=== PATIENT | female | born 1990 | race Caucasian/White ===

== ENCOUNTER 2016-03-17 13:09 | Outpatient (RCR) | payer OTHER ==
--- OUTSIDE RECORDS SUMMARY | 2016-01-14 13:22 | XMS REPORT | Continuity of Care Document ---
Author Author [facility] Organization [facility] Address Unknown Phone Unavailable Care Team Providers Care Supervisor Personnel Clerks Name Role Phone JUDITH JACKSON MD PCP Insurance Providers Payer Name Policy Number Subscriber Name Relationship [facility] [id number] Sean Montano 20 Father Advance Directives Directive Response Recorded Date/Time Advance Directives No 07/13/15 2:34pm Health Care Power of Entry Level Truck Driver No 07/13/15 2:34pm Organ Donor No 06/21/15 7:15pm Problems Active Problems Medical Problem Onset Date Status Calf pain Unknown Acute Deep vein thrombophlebitis of left leg Unknown Acute Leukocytosis Unknown Acute vaginal bleeding in Unknown Acute Medications Current Home Medications Medication Dose Units Route Directions Days/Qty Instructions Start Date Rivaroxaban 15 Mg 15 Mg Oral Bid@,17 16 Days BID until 08/03/2015 then change to 20 mg daily. 07/18/15 Oxycodone Hcl/Acetaminophen 1 Each 1 Each Oral Every 4HRS as needed for Pain 20 07/18/15 Lorazepam 1 Mg 2 Mg Oral Three Times A Day as needed for Anxiety 15 Naproxen 250 Mg 250 Mg Oral Twice A Day 14 07/18/15 Past Home Medications Medication Directions Ordered Status [Jacquelyn] , 09/04/08 Discontinued Tramadol Hcl 300 Mg Tab.sr.24h, 09/04/08 Discontinued Ciprofloxacin 500 Mg Tablet, 1 Tab Oral Twice A Day 09/04/08 Discontinued Cyclobenzaprine Hcl (Flexeril) 10 Mg Tablet, 1 Each Oral Twice A Day Discontinued Acetaminophen/Hydrocodone Bitart 1 Each Tablet, 1 - 2 Each Oral Q 4 - 6 Hr Prn 10/14/12 Discontinued Vit #108/Iron/Fa 1 Each Tablet, 1 Each Oral Daily 02/23/13 Discontinued Docusate Sodium 100 Mg Capsule, 1 Cap Oral Daily as needed for Constipation 10/03/13 Discontinued Acetaminophen/Hydrocodone Bitart ([place]) 1 Each Tablet, 1-2 Tab Oral Every 3 Hours as needed for Pain 10/03/13 Discontinued Ibuprofen 800 Mg Tablet, 1 Tab Oral Give Every 6 Hr On Schedule as needed for Pain 10/03/13 Discontinued Clindamycin Hcl 150 Mg Capsule, 450 Mg Oral Three Times A Day 06/21/15 Discontinued Naproxen 500 Mg Tablet, 500 Mg Oral Twice A Day 06/21/15 Discontinued Hydrocodone/Acetaminophen 1 Each Tablet, 1 Each Oral Every 4HRS as needed for Pain 06/21/15 Discontinued L.acidoph & Paracasei,B.lactis 1 Each Capsule, 1 Each Oral Twice A Day Discontinued Hydrocodone/Acetaminophen 1 Each Tablet, 1 Tab Oral Every 8HRS as needed for Severe Pain 07/13/15 Discontinued Norgestimate-Ethinyl Estradiol 1 Each Tablet, 1 Tab Oral Daily 07/13/15 Discontinued Social History Social History Problem Response Recorded Date/Time Alcohol Use Denies Use 07/13/2015 2:33pm Recreational Drug Use No 07/13/2015 2:33pm Recent Foreign Travel No 09/30/2013 8:27pm Recent Infectious Disease Exposure No 09/30/2013 8:27pm Sexually Transmitted Disease No 07/13/2015 2:33pm HIV/AIDS No 07/13/2015 2:33pm Do you dip or chew tobacco? No 07/13/2015 2:35pm Sexually Transmitted Disease No 07/13/2015 2:33pm Hospital Discharge Instructions No hospital discharge instructions. Plan of Care Prescriptions See Medication Section Functional Status No functional status results. Allergies, Adverse Reactions, Alerts Allergen Type Severity Reaction Status Last Updated Penicillins ([id number]) Allergy Severe HIVES AND SWELLING Active 07/13/15 Cephalexin Allergy Severe HIVES AND SWELLING Active 07/13/15 cefaclor ([id number]) Allergy Severe HIVES AND SWELLING Active 07/13/15 adhesive tape Allergy Unknown Active 07/14/15 amoxicillin ([id number]) Allergy Severe HIVES AND SWELLING Active 07/13/15 Immunizations No immunization records. Vital Signs No known vital signs results. Results No known relevant diagnostic tests, laboratory data and/or discharge summary. Procedures No known history of procedures. Encounters Encounter Location Arrival/Admit Date Discharge/Depart Date Attending Provider Discharged Recurring [facility] 08/13/15 1:50pm 11:59pm JUDD MCGOWAN
[2016-01-14 13:35] LABS: BASOPHILS % (AUTO) 0 % (0-10); EOSINOPHILS # (AUTO) 0.7 10^3/uL (0.0-0.3); EOSINOPHILS % (AUTO) 6 % (0-10); LYMPHOCYTES % (AUTO) 26 % (12-44); MEAN CORPUSCULAR HEMOGLOBIN 27 PG (25-34); MEAN CORPUSCULAR HGB CONC 33 G/DL (32-36); MEAN CORPUSCULAR VOLUME 82 FL (80-99); MEAN PLATELET VOLUME 10.1 FL (7.4-10.4); MONOCYTES # (AUTO) 0.8 X 10^3 (0.0-1.0); MONOCYTES % (AUTO) 7 % (0-12); NEUTROPHILS # (AUTO) 7.2 X 10^3 (1.8-7.8); NEUTROPHILS % (AUTO) 61 % (42-75); PLATELET COUNT 320 10^3/uL (130-400); RED BLOOD COUNT 4.92 10^6/uL (4.35-5.85); RED CELL DISTRIBUTION WIDTH 15.6 % (10.0-14.5); WHITE BLOOD COUNT 11.7 10^3/uL (4.3-11.0)
[2016-01-14 14:31] LABS: ALANINE AMINOTRANSFERASE 19 U/L (0-55); ALBUMIN 4.1 G/DL (3.2-4.5); ANION GAP 13 MMOL/L (5-14); ASPARTATE AMINO TRANSFERASE 17 U/L (5-34); BILIRUBIN,TOTAL 0.3 MG/DL (0.1-1.0); BLOOD UREA NITROGEN 12 MG/DL (7-18); BUN/CREATININE RATIO 17; CALCIUM 9.5 MG/DL (8.5-10.1); CARBON DIOXIDE 23 MMOL/L (21-32); CHLORIDE 107 MMOL/L (98-107); GFR ESTIMATED > 60; GLUCOSE 97 MG/DL (70-105); POTASSIUM 3.8 MMOL/L (3.6-5.0); SODIUM 143 MMOL/L (135-145); TOTAL PROTEIN 6.8 G/DL (6.4-8.2)
[2016-03-02 06:39] LABS: DIL RUSSELL VIPER VENOM SCREEN 0.82 ratio (0.00-1.20); LUPUS ANTICOAGULANT PTT 38.9 Seconds (24.4-41.7); PROTEIN C FUNCTIONAL ASSAY 130 % (70-130)
[2016-03-02 06:48] LABS: PT REF RML 13.7 SEC (10.5-15.7); PTT LUPUS 38.1 SEC (20.6-39.2)
[2016-03-05 13:52] LABS: CLIN PATHOLOGY REPORT FOOTNOTE
[~2016-03-17 13:09] MED LIST: ASPI-983 PO; CIPR-225 PO; CLIN150C17 PO; CPR500T PO; CYCL10TA9 PO; DCS100C PO; HYDR-3720 PO; HYDR-3874 PO; HYDR-707 PO; HYDR-753 PO; HYDR-757 PO; IBP800T PO; L.AC1CAP6 PO; LORA1TAB PO; NAPR250T2 PO; NAPR500T PO; NITR-68 PO; NORG1TAB15 PO; OXYC-464 PO; OXYC-465 PO; PREN-115 PO; RIVA15TA PO; TAMS0.4C98 PO; TRAM300T4; YAZ
== END 2016-04-13 | disposition home or self-care (01) ==
LOC: ONC 13:09
PROVIDERS: ATTEND Internal Medicine Hematology & Oncology
DX: I82.402 Acute embolism and thrombosis of unspecified deep veins of left lower extremity (principal); I26.99 Other pulmonary embolism without acute cor pulmonale; I87.002 Postthrombotic syndrome without complications of left lower extremity; R60.0 Localized edema; F17.210 Nicotine dependence, cigarettes, uncomplicated; E66.9 Obesity, unspecified; Z68.36 Body mass index [BMI] 36.0-36.9, adult; Z79.01 Long term (current) use of anticoagulants
CPT/HCPCS: 36415; 80053; 82728; 85025; 85300; 85303; 85306; 85610; 85613; 85705; 85730; 86146; 86147; 99213

== ENCOUNTER 2016-05-10 05:20 | Inpatient (IN) | payer OTHER ==
[~2016-05-10] VITALS: Ht 157.5 cm; Wt 89.2 kg
[2016-05-10] MEDS ORDERED: NS IV 1000 ML 1,000 ML IV ONE (05:22)
--- OUTSIDE RECORDS SUMMARY | 2016-05-10 05:25 | XMS REPORT | Continuity of Care Document ---
Author Author [facility] Organization [facility] Address Unknown Phone Unavailable Care Team Providers Care Commodity Merchant Name Role Phone JUDITH JACKSON MD PCP Insurance Providers Payer Name Policy Number Subscriber Name Relationship [facility] [id number] Sean Montano 20 Father Advance Directives Directive Response Recorded Date/Time Advance Directives No 07/13/15 2:34pm Health Care Power of Document Control Specialist No 07/13/15 2:34pm Organ Donor No 06/21/15 [...] needed for Constipation 10/03/13 Discontinued Acetaminophen/Hydrocodone Bitart ([place]) 1 Each Tablet, 1-2 Tab Oral Every [...] Type Severity Reaction Status Last Updated Penicillins ([id number]) Allergy Severe HIVES AND SWELLING Active 07/13/15 Cephalexin Allergy Severe HIVES AND SWELLING Active 07/13/15 cefaclor ([id number]) Allergy Severe HIVES AND SWELLING Active 07/13/15 adhesive tape Allergy Unknown Active 07/14/15 amoxicillin ([id number]) Allergy Severe HIVES AND SWELLING Active 07/13/15 Immunizations No immunization records. Vital Signs No known vital signs results. Results No known relevant diagnostic tests, laboratory data and/or discharge summary. Procedures No known history of procedures. Encounters Encounter Location Arrival/Admit Date Discharge/Depart Date Attending Provider Discharged Recurring [facility] 08/13/15 1:50pm 11:59pm JUDD MCGOWAN
[2016-05-10] MEDS ORDERED: ONDANSETRON 4 MG/2 ML (SDV) Z0FRAN IVP ONE ×3 (05:30→07:30)
[2016-05-10] MEDS ORDERED: fentaNYL INJECTION 100 MCG/2 ML AMP IVP ONE (05:30)
[2016-05-10] MEDS ORDERED: LORA1TAB PO (05:36)
[2016-05-10 05:39] LABS: BASOPHILS % (AUTO) 0 % (0-10); EOSINOPHILS # (AUTO) 0.8 10^3/uL (0.0-0.3); EOSINOPHILS % (AUTO) 5 % (0-10); LYMPHOCYTES # (AUTO) 3.3 X 10^3 (1.0-4.0); LYMPHOCYTES % (AUTO) 22 % (12-44); MEAN CORPUSCULAR HEMOGLOBIN 27 PG (25-34); MEAN CORPUSCULAR HGB CONC 34 G/DL (32-36); MEAN CORPUSCULAR VOLUME 79 FL (80-99); MONOCYTES # (AUTO) 1.5 X 10^3 (0.0-1.0); MONOCYTES % (AUTO) 10 % (0-12); NEUTROPHILS # (AUTO) 9.8 X 10^3 (1.8-7.8); NEUTROPHILS % (AUTO) 64 % (42-75); PLATELET COUNT 409 10^3/uL (130-400); RED BLOOD COUNT 5.17 10^6/uL (4.35-5.85); RED CELL DISTRIBUTION WIDTH 14.9 % (10.0-14.5); WHITE BLOOD COUNT 15.4 10^3/uL (4.3-11.0)
--- NOTE | 2016-05-10 05:59 | ED Abdominal Pain ---
General Chief Complaint: Abdominal/GI Problems Stated Complaint: KIDNEY STONES Nursing Triage Note: c/o severe R flank pain since patient reports being evaluated by pcp for same Sepsis Screen: No Definite Risk Source of Information: Patient, Old Records Exam Limitations: No Limitations (NATE HAYDEN MD) History of Present Illness Time Seen By Provider: 05:22 Initial Comments This 26-year-old woman presents to the emergency room tearful and in pain in the right flank. She was seen by her primary care provider on and was noted to have hematuria. She presumably has a ureteral stone and has a history of renal stones. She is also nauseated without vomiting. She reports is a possibility as her last menstrual period was the beginning of March. She denies fever. In review of chart it was noted that patient had an 8 mm UPJ stone on the right in January. She was treated with ESWL by Dr. Conn in February. She has been relatively pain free since the ESWL until last week. Additional stones were noted in the right kidney on the CT from January. (NATE HAYDEN MD) Allergies and Home Medications Allergies Coded Allergies: Penicillins (Unverified Allergy, Severe, HIVES AND SWELLING, 07/13/15) amoxicillin (Unverified Allergy, Severe, HIVES AND SWELLING, 07/13/15) cefaclor (Unverified Allergy, Severe, HIVES AND SWELLING, 07/13/15) cephalexin (Unverified Allergy, Severe, HIVES AND SWELLING, 07/13/15) adhesive tape (Verified Allergy, Unknown, 07/14/15) Home Medications Lorazepam 1 Mg Tablet 1 MG PO BID PRN PRN ANXIETY (Reported) Review of Systems Constitutional: no symptoms reported EENTM: No Symptoms Reported Respiratory: No Symptoms Reported Cardiovascular: No Symptoms Reported Gastrointestinal: See HPI Genitourinary: See HPI Musculoskeletal: no symptoms reported Skin: no symptoms reported Psychiatric/Neurological: No Symptoms Reported Endocrine: No Symptoms Reported Hematologic/Lymphatic: No Symptoms Reported (NATE HAYDEN MD) Past Uwtnogk-Gdyfbe-Wvxvco Hx Patient Social History Type Used: Cigarettes Recent Foreign Travel: No Contact w/Someone Who Travel: No Recent Infectious Disease Expo: No Recent Hopitalizations: No (NATE HAYDEN MD) Immunizations Up To Date Tetanus Booster (TDap): Unknown PED Vaccines UTD: Yes (NATE HAYDEN MD) Seasonal Allergies Seasonal Allergies: Yes (NATE HAYDEN MD) Surgeries HX Surgeries: Yes (lithotrypsy) Surgeries: Section (NATE HAYDEN MD) Respiratory Hx Respiratory Disorders: Yes Respiratory Disorders: Pulmonary Embolism (NATE HAYDEN MD) Cardiovascular Hx Cardiac Disorders: Yes (DVT LEG) (NATE HAYDEN MD) Neurological Hx Neurological Disorders: No (NATE HAYDEN MD) Reproductive System Hx Reproductive Disorders: No Sexually Transmitted Disease: No HIV/AIDS: No Female Reproductive Disorders: Denies (NATE HAYDEN MD) Genitourinary Hx Genitourinary Disorders: Yes Genitourinary Disorders: Kidney Stones (NATE HAYDEN MD) Gastrointestinal Hx Gastrointestinal Disorders: Yes Gastrointestinal Disorders: Gastroesophageal Reflux (NATE HAYDEN MD) Musculoskeletal Hx Musculoskeletal Disorders: No (NATE HAYDEN MD) Endocrine Hx Endocrine Disorders: No (NATE HAYDEN MD) HEENT HX ENT Disorders: No Loss of Vision: Denies Hearing Impairment: Denies (NATE HAYDEN MD) Cancer Hx Cancer: No (NATE HAYDEN MD) Psychosocial Hx Psychiatric Problems: Yes Behavioral Health Disorders: Anxiety (NATE HAYDEN MD) Integumentary HX Skin/Integumentary Disorder: No (NATE HAYDEN MD) Blood Transfusions Hx Blood Disorders: No Adverse Reaction to a Blood Tr: No (N/A) (NATE HAYDEN MD) Family Medical History Family Medial History: Cancer 19 MOTHER, Onset:25's - 30 No Family History of: Abdominal aortic aneurysm Serge's disease Alcoholism Aphasia Cancer of colon Cataract Chest pain Congenital heart disease Congestive heart failure Cystic fibrosis Dementia Dysphagia Family history: Allergy Family history: Alzheimer's disease Family history: Arthritis Family history: Asthma Family history: Breast disease Family history: Cardiovascular disease Family history: Coronary thrombosis Family history: Diabetes mellitus Family history: Gastrointestinal disease Family history: Glaucoma Family history: Hypertension Family history: Osteoporosis Family history: Thyroid disorder Headache Hearing loss Heart disease Hereditary disease History of - anemia History of - disorder History of - respiratory disease History of drug abuse Human immunodeficiency virus (HIV) seropositivity Hypercholesterolemia Infertile Kidney disease Malignant neoplasm of lung Myocardial infarction Parkinson's disease Prostate cancer Psychotic disorder Seizure disorder Stroke Tuberculosis Visual impairment (NATE HAYDEN MD) Family Medial History: Cancer 19 MOTHER, Onset:25's - 30 No Family History of: Abdominal aortic aneurysm [place]'s disease Alcoholism Aphasia Cancer of colon Cataract Chest pain Congenital heart disease Congestive heart failure Cystic fibrosis Dementia Dysphagia Family history: Allergy Family history: Alzheimer's disease Family history: Arthritis Family history: Asthma Family history: Breast disease Family history: Cardiovascular disease Family history: Coronary thrombosis Family history: Diabetes mellitus Family history: Gastrointestinal disease Family history: Glaucoma Family history: Hypertension Family history: Osteoporosis Family history: Thyroid disorder Headache Hearing loss Heart disease Hereditary disease History of - anemia History of - disorder History of - respiratory disease History of drug abuse Human immunodeficiency virus (HIV) seropositivity Hypercholesterolemia Infertile Kidney disease Malignant neoplasm of lung Myocardial infarction Parkinson's disease Prostate cancer Psychotic disorder Seizure disorder Stroke Tuberculosis Visual impairment (ADY HERNANDEZ DO) Physical Exam Vital Signs VS - Last 72 Hours, by Label 05/10/16 05/10/16 05:25 07:13 Temp 99.4 99.4 Pulse 110 Resp 24 B/P 134/102 Pulse Ox 100 O2 Delivery Room Air (ADY HERNANDEZ DO) Vital Signs Capillary Refill : Less Than 3 Seconds (NATE HAYDEN MD) General Appearance: WD/WN moderate distress HEENT: PERRL/EOMI normal ENT inspection pharynx normal Neck: normal inspection Respiratory: lungs clear normal breath sounds no respiratory distress no accessory muscle use Cardiovascular: regular rate, rhythm no edema no murmur Gastrointestinal: normal bowel sounds soft tenderness (right mid abdomen) Extremities: normal inspection no pedal edema Neurologic/Psychiatric: pulpwood cutter II-XII nml as tested no motor/sensory deficits alert normal mood/affect oriented x 3 Skin: normal color warm/dry (NATE HAYDEN MD) Progress/Results/Core Measures Results/Orders Lab Results Laboratory Tests Test 05/10/16 05:25 05/10/16 06:40 Range/Units Alanine Aminotransferase (ALT/SGPT) 9 0-55 U/L Albumin 4.1 3.2-4.5 G/DL Alkaline Phosphatase 82 40-136 U/L Anion Gap 13 5-14 MMOL/L Aspartate Amino Transf (AST/SGOT) 12 5-34 U/L BUN/Creatinine Ratio 13 Basophils # (Auto) 0.0 0.0-0.1 10^3/uL Basophils (%) (Auto) 0 0-10 % Blood Morphology Comment NORMAL Blood Urea Nitrogen 15 7-18 MG/DL Calcium Level 9.7 8.5-10.1 MG/DL Carbon Dioxide Level 21 21-32 MMOL/L Chloride Level 107 98-107 MMOL/L Creatinine 1.12 0.60-1.30 MG/DL Eosinophils # (Auto) 0.8 H 0.0-0.3 10^3/uL Eosinophils % (Manual) 3 % Eosinophils (%) (Auto) 5 0-10 % Estimat Glomerular Filtration Rate 59 Glucose Level 103 70-105 MG/DL Hematocrit 41 35-52 % Hemoglobin 13.9 11.5-16.0 G/DL Lymphocytes # (Auto) 3.3 1.0-4.0 X 10^3 Lymphocytes % (Manual) 24 % Lymphocytes (%) (Auto) 22 12-44 % Mean Corpuscular Hemoglobin 27 25-34 PG Mean Corpuscular Hemoglobin Concent 34 32-36 G/DL Mean Corpuscular Volume 79 L 80-99 FL Mean Platelet Volume 10.0 7.4-10.4 FL Monocytes # (Auto) 1.5 H 0.0-1.0 X 10^3 Monocytes % (Manual) 7 % Monocytes (%) (Auto) 10 0-12 % Neutrophils # (Auto) 9.8 H 1.8-7.8 X 10^3 Neutrophils % (Manual) 66 % Neutrophils (%) (Auto) 64 42-75 % Platelet Count 409 H 130-400 10^3/uL Potassium Level 4.3 3.6-5.0 MMOL/L Red Blood Count 5.17 4.35-5.85 10^6/uL Red Cell Distribution Width 14.9 H 10.0-14.5 % Serum Test, Qualitative NEGATIVE NEGATIVE Sodium Level 141 135-145 MMOL/L Total Bilirubin 0.3 0.1-1.0 MG/DL Total Protein 7.5 6.4-8.2 G/DL White Blood Count 15.4 H 4.3-11.0 10^3/uL Urine Amorphous Sediment FEW ALEKSANDR PHOSPHATE H /LPF Urine Bacteria TRACE /HPF Urine Bilirubin NEGATIVE NEGATIVE Urine Casts NONE /LPF Urine Clarity CLEAR Urine Color TANNA H Urine Crystals PRESENT H /LPF Urine Culture Indicated NO Urine Glucose (UA) NEGATIVE NEGATIVE Urine Ketones NEGATIVE NEGATIVE Urine Leukocyte Esterase 1+ H NEGATIVE Urine Mucus NEGATIVE /LPF Urine Nitrite NEGATIVE NEGATIVE Urine Other /HPF Urine Protein 2+ H NEGATIVE Urine RBC >100 H /HPF Urine RBC (Auto) 5+ H NEGATIVE Urine Specific [place] 1.005 L 1.016-1.022 Urine Squamous Epithelial Cells >50 H /HPF Urine Urobilinogen NORMAL NORMAL MG/DL Urine WBC RARE /HPF Urine pH 7 5-9 (ADY HERNANDEZ DO) My Orders Orders-ADY HERNANDEZ DO Hydromorphone Injection (Dilaudid Inject (05/10/16 07:15) Abdomen/Kub 1view (05/10/16 07:16) Ondansetron Injection (Zofran Injectio (05/10/16 07:30) (ADY HERNANDEZ DO) Medications Given in ED Current Medications Medications Dose Ordered Sig/Awilda Route Start Time Stop Time Status Last Admin Dose Admin Fentanyl Citrate 75 mcg ONCE ONCE IVP 05/10/16 05:30 05/10/16 05:31 DC 05/10/16 05:31 75 MCG Hydromorphone HCl 1 mg ONCE ONCE IVP 05/10/16 07:15 05/10/16 07:16 DC 05/10/16 07:13 1 MG Iohexol 100 ml ONCE ONCE IV 05/10/16 06:15 05/10/16 06:44 DC 05/10/16 06:18 100 ML Ketorolac Tromethamine 30 mg ONCE ONCE IVP 05/10/16 06:00 05/10/16 06:02 DC 05/10/16 06:04 30 MG Levofloxacin/ Dextrose 100 ml @ 100 mls/hr ONCE ONCE IV 05/10/16 06:30 05/10/16 07:29 DC 05/10/16 06:48 100 MLS/HR Morphine Sulfate 5 mg ONCE ONCE IVP 05/10/16 06:00 05/10/16 06:01 DC 05/10/16 05:57 5 MG Ondansetron HCl 4 mg ONCE ONCE IVP 05/10/16 05:30 05/10/16 05:31 DC 05/10/16 05:31 4 MG Ondansetron HCl 4 mg ONCE ONCE IVP 05/10/16 06:15 05/10/16 06:16 DC 05/10/16 06:07 4 MG Ondansetron HCl 4 mg ONCE ONCE IVP 05/10/16 07:30 05/10/16 07:31 DC 05/10/16 07:21 4 MG Sodium Chloride 1,000 ml @ 0 mls/hr Q0M ONCE IV 05/10/16 05:22 05/10/16 05:24 DC 05/10/16 05:28 0 MLS/HR Sodium Chloride 80 ml 80 ml ONCE ONCE IV 05/10/16 06:15 05/10/16 06:44 DC 05/10/16 06:18 80 ML (ADY HERNANDEZ DO) Vital Signs/I&O Vital Sign - Last 12Hours 05/10/16 05/10/16 05:25 07:13 Temp 99.4 99.4 Pulse 110 Resp 24 B/P 134/102 Pulse Ox 100 O2 Delivery Room Air (ADY HERNANDEZ DO) Blood Pressure Mean: 113 Progress Note #1: Time: 05:54 Progress Note Patient initially persistently reported her pain is greater than 10 on a 10 point scale. She received fentanyl 75 g. Zofran was ordered for nausea. She still reports her pain as 9/10. Morphine 5 mg was ordered. IV fluids are infusing. Labs are pending. Imaging will be ordered pending results of test. Progress Note #2: Time: 06:05 Progress Note Patient is still tearful and in significant pain. Toradol has been added as test was negative. CT of the abdomen and pelvis with contrast was ordered. Patient is still nauseated and an additional 4 mg of Zofran was ordered. Care of this patient is being transitioned to Dr. Hernandez at this time. (NATE HAYDEN MD) Diagnostic Imaging Diagonstic Imaging: CT Plain Films/CT/US/NM/MRI: abdomen, pelvis Comments CT abdomen and pelvis with contrast viewed by me and report reviewed. See report below: NAME: BENJI MONTANO [facility] REC#: [id number] PT STATUS: ADM Kat : 1990 PHYSICIAN: NATE HAYDEN MD ADMIT DATE: 05/10/16/4TH Signed Date of Exam: 05/10/16 CT ABDOMEN/PELVIS W PROCEDURE: CT abdomen and pelvis with contrast. TECHNIQUE: Multiple contiguous axial images were obtained through the abdomen and pelvis after administration of intravenous contrast. INDICATION: Right-sided abdominal pain. COMPARISON: 01/29/2016. FINDINGS: There is a 9 mm obstructing calculus in the distal right ureter near the level of lumbosacral junction. This results in at least moderate proximal hydroureter and hydronephrosis. There is delayed enhancement of the right kidney compatible with high-grade obstruction. There are a few linear 3 mm nonobstructing calculi in the upper and lower pole of the right kidney. Left kidney enhances normally without obstructing calculi. Lung bases are clear. No pericardial or pleural effusion. No free intraperitoneal air or fluid. The liver, spleen, pancreas and adrenals are normal. No bowel obstruction. No pericolonic inflammatory changes. Appendix is normal. Normal caliber abdominal aorta. No abdominal or pelvic lymphadenopathy. Normal regional skeleton. IMPRESSION: 1. There is a 9 mm obstructing calculus in the distal right ureter resulting in moderate proximal hydroureter and moderate hydronephrosis. Delayed enhancement of the right kidney is compatible with high-grade obstruction. Dictated by: Dictated on workstation # [id number] Dict: 05/10/16 0635 Trans: 05/10/16 0803 [id number] Interpreted by: JAYLA SENIOR MD Electronically signed by:JAYLA SENIOR MD 05/10/16 0806 (NATE HAYDEN MD) Departure Communication Time/Spoke to Admitting Phy: 06:58 (ADY HERNANDEZ DO) Impression Impression: Primary Impression: Right ureterolithiasis c/ colic/hydro Disposition: 09 ADMITTED INPATIENT Condition: Stable Decision to Admit Reason: Admit from ER (General) Decision to Admit/Date: May 10, 2016 Time/Decision to Admit Time: 07:00 (ADY HERNANDEZ DO) Departure-Patient Inst. Referrals: JUDITH JACKSON MD (PCP/Family) Primary Care Physician NATE HAYDEN MD May 10, 2016 05:59 ADY HERNANDEZ DO May 10, 2016 07:31 ADY HERNANDEZ DO May 10, 2016 07:31
[2016-05-10] MEDS ORDERED: morphine INJ 10 MG/ML 1ML (SYR OR VIAL) IVP ONE (06:00)
[2016-05-10] MEDS ORDERED: KETOROLAC 30 MG/ML VIAL IVP ONE (06:00)
[2016-05-10 06:01] LABS: ALBUMIN 4.1 G/DL (3.2-4.5); BILIRUBIN,TOTAL 0.3 MG/DL (0.1-1.0); CALCIUM 9.7 MG/DL (8.5-10.1); CREATININE SERUM 1.12 MG/DL (0.60-1.30); POTASSIUM 4.3 MMOL/L (3.6-5.0); TOTAL PROTEIN 7.5 G/DL (6.4-8.2)
[2016-05-10] MEDS ORDERED: NS 100 ML (IVPB) BAG IV ONE (06:15)
[2016-05-10] MEDS ORDERED: IOHEXOL 350 MG/ML 100 ML (OMNIPAQUE 350) VIAL IV ONE (06:15)
[2016-05-10 06:29] LABS: EOSINOPHILS % (MANUAL) 3 %; LYMPHOCYTES % (MANUAL) 24 %; NEUTROPHILS % (MANUAL) 66 %
[2016-05-10] MEDS ORDERED: LEVOFLOXACIN 500 MG/100 ML IV 100 ML IV ONE (06:30)
--- NOTE | 2016-05-10 06:42 | Diagnostic Imaging Report ---
PROCEDURE: CT abdomen and pelvis with contrast. TECHNIQUE: Multiple contiguous axial images were obtained through the abdomen and pelvis after administration of intravenous contrast. INDICATION: Right-sided abdominal pain. COMPARISON: 01/29/2016. FINDINGS: There is a 9 mm obstructing calculus in the distal right ureter near the level of lumbosacral junction. This results in at least moderate proximal hydroureter and hydronephrosis. There is delayed enhancement of the right kidney compatible with high-grade obstruction. There are a few linear 3 mm nonobstructing calculi in the upper and lower pole of the right kidney. Left kidney enhances normally without obstructing calculi. Lung bases are clear. No pericardial or pleural effusion. No free intraperitoneal air or fluid. The liver, spleen, pancreas and adrenals are normal. No bowel obstruction. No pericolonic inflammatory changes. Appendix is normal. Normal caliber abdominal aorta. No abdominal or pelvic lymphadenopathy. Normal regional skeleton. IMPRESSION: 1. There is a 9 mm obstructing calculus in the distal right ureter resulting in moderate proximal hydroureter and moderate hydronephrosis. Delayed enhancement of the right kidney is compatible with high-grade obstruction. Dictated by: Dictated on workstation # [id number]
[2016-05-10 06:57] LABS: BILIRUBIN,URINE NEGATIVE (NEGATIVE); KETONES,URINE NEGATIVE (NEGATIVE); LEUKOCYTE ESTERASE ,URINE 1+ (NEGATIVE); NITRITE,URINE NEGATIVE (NEGATIVE); PH,URINE 7 (5-9); PROTEIN,URINE 2+ (NEGATIVE); UROBILINOGEN,URINE NORMAL (NORMAL)
[2016-05-10 07:09] LABS: SQUAMOUS EPITHELIAL CELL,UR >50 /HPF; WBC,URINE RARE /HPF
[2016-05-10] MEDS ORDERED: HYDROmorphone (DILAUDID) 2 MG/ML VIAL IVP ONE (07:15)
--- NOTE | 2016-05-10 07:58 | Diagnostic Imaging Report ---
INDICATION: Kidney stone. COMPARISON: 03/02/2016. COMPARISON: CT abdomen and pelvis performed one hour prior. FINDINGS: There is contrast material in the renal collecting system and bladder from recent CT. Moderate dilation of the proximal right collecting system is compatible with known obstructing uropathy. The distal right ureteral calculus is not radiographically apparent as it has summation over the region of the sacrum. IMPRESSION: 1. Known obstructing distal right ureteral calculus is not radiographically apparent. Moderate right hydronephrosis and proximal hydroureter is again confirmed. Dictated by: Dictated on workstation # [id number]
[2016-05-10 08:00] VITALS: BP 121/68
[2016-05-10] MEDS ORDERED: CATHETER FLUSH 10 ML SYR IV PRN (08:30)
[2016-05-10] MEDS: NS IV 1000 ML 1,000 ML IV SCH ×2 (08:56→16:57)
[2016-05-10] MEDS: fentaNYL PCA 300 MCG/30 ML VIAL IV PRN (09:06)
--- NOTE | 2016-05-10 11:56 | HISTORY AND PHYSICAL ---
DATE OF ADMISSION: 05/10/2016 CHIEF COMPLAINT: Right mid ureteral stone with pain and obstruction. PRESENT HISTORY: A 26-year-old white lady known to me with history of urolithiasis who underwent an ESWL sometime in February. She did very well until a few days ago when she started having right flank pain. She went to her PCT and then presented to the emergency room with severe pain. A CT scan showed 9 millimeter stone in the mid ureter with some obstruction. She is being admitted for pain control and definitive treatment tomorrow as the ESWL machine is going to be here. ALLERGIES: 1. PENICILLIN 2. CEPHALOSPORINS HOME MEDICATIONS: Lorazepam SOCIAL HISTORY: The patient smokes a pack of cigarettes a day. No alcohol. No drugs. She is a single has one child. SURGERY LYNN: 1. The above-mentioned surgery. 2. Previous basket. 3. . FAMILY HISTORY: Positive for stones. Medical illnesses: Healthy except for anxiety and also seasonal allergies. PHYSICAL EXAMINATION: Vitals per chart. GENERAL: Well-nourished, well-developed, in moderate distress. HEAD: The head is normocephalic. ENT: Unremarkable. NECK: Supple. No bruits. CHEST: Clear, nontender. HEART: Regular rate and rhythm. No murmur. ABDOMEN: Soft with some right CVA tenderness. EXTREMITIES: Lower extremity no edema or cyanosis. NEUROLOGICAL EXAM: Oriented x 3 and grossly intact. SKIN: Skin is warm and dry. IMPRESSION: 1. Right mid ureteral stone with pain and obstruction and hematuria. 2. History of urolithiasis. 3. Anxiety. 4. Seasonal allergies. PLAN: Admit, keep her comfortable, cover with antibiotic. Have a KUB in the morning and proceed with cystoscopy, right ureteroscopy with stone lithotripsy, possible basket, double-J stent, ESWL or lithotomy. The procedure was fully explained to the patient in detail to all of her questions were answered. Job ID: [id number] Dictated Date: 05/10/2016 11:21:25 Program Director/Traffic Director Date: 05/10/2016 11:49:12/maria teresa
[2016-05-10] MEDS: KETOROLAC 30 MG/ML VIAL IV SCH ×3 (11:58→23:01)
[2016-05-10] MEDS: ONDANSETRON 4 MG/2 ML (SDV) Z0FRAN IV PRN ×2 (11:58→19:28)
[2016-05-10 12:00] VITALS: BP 107/70
[2016-05-10] MEDS ORDERED: FLU TRIvalent (5 YOA+) 2016-17 (AFLURIA) 0.5 ML IM ONE (12:00)
[2016-05-10 16:02] VITALS: BP 108/64
[2016-05-10] MEDS: NICOTINE 14 MG (NICODERM) PATCH TD SCH (19:23)
[2016-05-10 20:19] VITALS: BP 112/74
[2016-05-11] VITALS: BP 114/71
[2016-05-11] MEDS: NS IV 1000 ML 1,000 ML IV SCH ×4 (01:20→17:51)
[2016-05-11 04:00] VITALS: BP 137/84
[2016-05-11] MEDS: KETOROLAC 30 MG/ML VIAL IV SCH ×4 (04:37→23:41)
[2016-05-11] MEDS ORDERED: HYDROmorphone (DILAUDID) 2 MG/ML VIAL IVP ONE (05:30)
--- NOTE | 2016-05-11 07:09 | Progress Note-Pre Operative ---
Pre-Operative Progress Note H&P Reviewed The H&P was reviewed, patient examined and no changes noted. Date H&P Reviewed: May 11, 2016 Time H&P Reviewed: 07:09 Pre-Operative Diagnosis: Rt distal ureteral stone CHEKO ANGELES MD May 11, 2016 7:09 am
[2016-05-11 08:00] VITALS: BP 125/79
[2016-05-11] MEDS: LEVOFLOXACIN 500 MG/D5W 100 ML (PRE-MIX) IV SCH (08:42)
[2016-05-11] MEDS: NICOTINE 14 MG (NICODERM) PATCH TD SCH (08:42)
[2016-05-11] MEDS: NICOTINE PATCH REMOVAL TP SCH (08:42)
[2016-05-11] MEDS: ONDANSETRON 4 MG/2 ML (SDV) Z0FRAN IV PRN ×3 (08:46→17:51)
--- NOTE | 2016-05-11 08:57 | Diagnostic Imaging Report ---
INDICATION: Nephrolithiasis. FINDINGS: There has been interval evacuation of previous contrast media. Known large stone previously had projected over the mid-upper right sacral ala, it can no longer be clearly identified however its conceivably obscured by superimposition upon overlying osseous structures. The bowel gas pattern nonspecific. IMPRESSION: Interval evacuation of the urinary tract contrast. Nonvisualization of previously seen large stone projecting over the sacrum but again that could be obscured on a technical basis. No adverse development revealed. Dictated by: Dictated on workstation # [id number]
[2016-05-11] MEDS ORDERED: proPOfol 200 MG/20 ML (DIPRIVAN) VIAL IV ONE (09:26)
[2016-05-11] MEDS ORDERED: MIDAZOLAM 2 MG/2 ML (VERSED) VIAL ONE (09:26)
[2016-05-11] MEDS ORDERED: LACTATED RINGERS 1,000 ML IV ONE ×2 (09:26→10:21)
[2016-05-11] MEDS ORDERED: SEVOFLURANE (ULTANE) 15 ML INHAL SOLN ONE ×6 (09:26→11:30)
[2016-05-11] MEDS ORDERED: LIDOCAINE PF 2% 10 ML (XYLOCAINE) AMP ONE (09:26)
[2016-05-11] MEDS ORDERED: fentaNYL INJECTION 100 MCG/2 ML AMP ONE (09:26)
[2016-05-11] MEDS ORDERED: ONDANSETRON 4 MG/2 ML (SDV) Z0FRAN ONE (10:21)
[2016-05-11] MEDS ORDERED: DEXAMETHASONE PF 10 MG/ML (DECADRON) VIAL ONE (10:21)
[2016-05-11] MEDS ORDERED: KETOROLAC 30 MG/ML VIAL ONE (10:22)
[2016-05-11] MEDS ORDERED: FUROSEMIDE 40 MG/4 ML INJ (LASIX) ONE (10:22)
--- NOTE | 2016-05-11 10:57 | Progress Note-Post Operative ---
Post-Operative Progess Note Pre-Operative Diagnosis Rt distal ureteral stone Post-Operative Diagnosis SAME Post-Op Procedure Note Date of Procedure: May 11, 2016 Name of Procedure: CYSTOSCOPY, RT URETEROSCOPY WITH ATTEMPTED LITHOTRIPSY, AND RT ESWL Anesthesia Type GENERAL CHEKO ANGELES MD May 11, 2016 10:57 am
[2016-05-11] MEDS ORDERED: morphine INJ 10 MG/ML 1ML (SYR OR VIAL) IV PRN (11:15)
[2016-05-11] MEDS ORDERED: fentaNYL INJECTION 100 MCG/2 ML AMP IV PRN (11:15)
[2016-05-11] MEDS ORDERED: ONDANSETRON 4 MG/2 ML (SDV) Z0FRAN IV ONE (11:15)
[2016-05-11 12:36] VITALS: BP 152/83
[2016-05-11 16:00] VITALS: BP 125/79
[2016-05-11] MEDS: fentaNYL PCA 300 MCG/30 ML VIAL IV PRN (19:27)
[2016-05-11 20:00] VITALS: BP 123/75
[2016-05-11] MEDS: LORazepam 1 MG (ATIVAN) TAB PO PRN (22:15)
[2016-05-12] VITALS: BP 107/62
[2016-05-12] MEDS: NS IV 1000 ML 1,000 ML IV SCH ×2 (01:09→10:18)
[2016-05-12 04:00] VITALS: BP 121/70
[2016-05-12] MEDS: KETOROLAC 30 MG/ML VIAL IV SCH ×2 (06:00→12:00)
[2016-05-12] MEDS: NICOTINE 14 MG (NICODERM) PATCH TD SCH (07:57)
[2016-05-12] MEDS: NICOTINE PATCH REMOVAL TP SCH (07:57)
[2016-05-12] MEDS: LORazepam 1 MG (ATIVAN) TAB PO PRN (07:57)
[2016-05-12] MEDS: LEVOFLOXACIN 500 MG/D5W 100 ML (PRE-MIX) IV SCH (07:57)
[2016-05-12 08:00] VITALS: BP 120/82
--- NOTE | 2016-05-12 08:57 | Diagnostic Imaging Report ---
INDICATION: Nephrolithiasis EXAMINATION: KUB at 8:28 AM Bowel gas pattern is normal. There are no pathologic masses or calcifications seen. IMPRESSION: Negative abdomen. Dictated by: Dictated on workstation # [id number]
--- NOTE | 2016-05-12 11:49 | Progress Note-Urology ---
Progress Note-Urology Progress Notes/Assess & Plan Progress/Assessment & Plan Afebrile, VSS, feeling and looking much better. No pains. Passed fragments. Wants to go home. All intraop findings, procedure, and future plans fully explained to her and her boyfriend. Instructions given, and Rx Final Diagnosis Rt distal ureteral stone CHEKO ANGELES MD May 12, 2016 11:49 am
--- NOTE | 2016-05-12 11:51 | Discharge Inst-Urology ---
Discharge Inst-Urology Discharge Medications New, Converted, or Re-newed RX: RX given to Patient/Fam Patient Instructions/Follow Up Plan Please make appointment to been seen in office in 2 weeks. Strain all urine Increase oral fluids for 48 hours, especially caffeinated ones, and then as needed. Diet and Activity as tolerated. If questions or concerns contact office Or seek help at emergency department. CHEKO ANGELES MD May 12, 2016 11:51 am
--- NOTE | 2016-05-12 12:02 | OPERATIVE REPORT ---
PROCEDURE PHYSICIAN: CHEKO ANGELES DATE OF PROCEDURE: 05/11/2016 PREOPERATIVE DIAGNOSIS: Right distal ureteral stone. POSTOPERATIVE DIAGNOSIS: Right distal ureteral stone. OPERATION: 1. Cystoscopy. 2. Right ureteroscopy with attempted lithotripsy. 3. Insertion of ureteral catheter. 4. Right ESWL. SURGEON: Senia. ANESTHESIA: General. COMPLICATIONS: None. PROCEDURE: Under satisfactory general anesthesia, the patient in lithotomy position on the cysto table, the genitalia were prepped and draped in usual sterile fashion. Cystoscope was introduced under vision into the bladder that was essentially normal except for absent or very sluggish right ureteral efflux. Using the Foroblique lens, I dilated the right ureteral orifice, intramural portion to accommodate a 6.9-Lithuanian semirigid ureteroscope. I went to the level of the stone, however, there was a lot of edema and swelling and hyperemia. I could not safely break up the stone with lithoclast, I could only reach the bottom part. So I removed the ureteroscope, reinserted the cystoscope, passed a 6-Lithuanian catheter to the level of the stone just proximal to it for identification and retrograde injection purpose. A Jean catheter was inserted and taped to the ureteral catheter. The patient was moved to the ESWL table and put supine. The stone was localized and shocks were delivered KV of 6. A total of 3000 shocks fluoroscopically seemed to have fragmented the stone however, I injected contrast and the contrast would not go beyond the stone either because of impaction or incomplete or proper fragmentation of the stone. I drained the bladder and removed both catheters. The patient received 40 mg of Lasix and 30 mg of Toradol IV at the end of the procedure. She tolerated the procedure and anesthesia well and was sent to recovery room in stable condition. PLAN: If this does not work, would have to send her to for a flexible ureteroscopy and lithotripsy. This was explained to the mother and later on to the patient. Job ID: [id number] Dictated Date: 05/11/2016 11:22:46 Lan Specialist Date: 05/12/2016 11:53:52 / maria teresa
[2016-05-12 12:48] VITALS: BP 120/82
--- OUTSIDE RECORDS SUMMARY | 2016-05-17 11:04 | XMS REPORT | Continuity of Care Document ---
Author Author [facility] Organization [facility] Address Unknown Phone Unavailable Care Team Providers Care Blurb Writer Name Role Phone JUDITH JACKSON MD PCP Insurance Providers Payer Name Policy Number Subscriber Name Relationship [facility] [id number] Sean Montano 20 Father Advance Directives Directive Response Recorded Date/Time Advance Directives No 07/13/15 2:34pm Health Care Power of Annual Giving Manager No 07/13/15 2:34pm Organ Donor No 06/21/15 [...] needed for Constipation 10/03/13 Discontinued Acetaminophen/Hydrocodone Bitart ([place]) 1 Each Tablet, 1-2 Tab Oral Every [...] Type Severity Reaction Status Last Updated Penicillins ([id number]) Allergy Severe HIVES AND SWELLING Active 07/13/15 Cephalexin Allergy Severe HIVES AND SWELLING Active 07/13/15 cefaclor ([id number]) Allergy Severe HIVES AND SWELLING Active 07/13/15 adhesive tape Allergy Unknown Active 07/14/15 amoxicillin ([id number]) Allergy Severe HIVES AND SWELLING Active 07/13/15 Immunizations No immunization records. Vital Signs No known vital signs results. Results No known relevant diagnostic tests, laboratory data and/or discharge summary. Procedures No known history of procedures. Encounters Encounter Location Arrival/Admit Date Discharge/Depart Date Attending Provider Discharged Recurring [facility] 08/13/15 1:50pm 11:59pm JUDD MCGOWAN
== END 2016-05-12 12:51 | disposition home or self-care (01) | DRG 692 ==
LOC: EDUNIT# 05:20 → ER 05:22 → OBSVTOIN 07:40 → UNDOADMOB 07:40 → 4TH 07:40 → INTOOBSV 07:40 → UNDODISIN 05-12 12:51
PROVIDERS: ADMIT Urology; ATTEND Urology
PROC: 0T768DZ Dilation of Right Ureter with Intraluminal Device, Via Natural or Artificial Opening Endoscopic (ICD-10-PCS; principal; 2016-05-11 09:48)
PROC: 0TF6XZZ Fragmentation in Right Ureter, External Approach (ICD-10-PCS; 2016-05-11 09:48)
DX: N20.1 Calculus of ureter (principal); F41.9 Anxiety disorder, unspecified; F17.210 Nicotine dependence, cigarettes, uncomplicated
CPT/HCPCS: 36415; 74000; 74177; 80053; 81000; 84703; 85007; 85027; 87081; 96365; 96375; 96376

== ENCOUNTER → 2016-07-08 | Outpatient (CLI) | payer BC ==
--- NOTE | 2016-07-08 14:16 | Diagnostic Imaging Report ---
INDICATION: Size and dates. OB sonography performed in the routine fashion. There is no prior study during this for comparison. A single live intrauterine fetus is seen measuring 8 weeks 3 days in size by crown-rump length with heart rate of 146 beats per minute. There is no evidence of subchorionic bleed. There is no free fluid. Ovaries could not be visualized. IMPRESSION: Single live intrauterine fetus measuring 8 weeks 3 days in size. There is no detectable abnormality. Suggest followup later in for full anatomical survey. Dictated by: Dictated on workstation # [id number]
== END ==
LOC: RAD 12:51
PROVIDERS: ATTEND Family Medicine
DX: Z36 Encounter for antenatal screening of mother (principal); Z3A.08 8 weeks gestation of pregnancy
CPT/HCPCS: 76801

== ENCOUNTER 2016-08-13 15:55 | Emergency (ER) | payer BC ==
[~2016-08-13] VITALS: Ht 162.6 cm; Wt 81.6 kg
--- NOTE | 2016-08-13 16:29 | ED Lower Extremity ---
General Stated Complaint: LARGE KNOT ON L LEG - - UNSURE IF RELATED Source: patient Exam Limitations: no limitations History of Present Illness Time seen by provider: 16:27 Initial Comments To ER with reports of a knot behind the left knee since last night, larger today. She denies shortness of breath, palpitations, chest pain.. She is 13 weeks gestation. 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 This was unprovoked and the cause was never found. Onset: just prior to arrival Severity: moderate Pain/Injury Location: left knee Method of Injury: unknown Modifying Factors: Worse With Movement Allergies and Home Medications Allergies Coded Allergies: Penicillins (Unverified Allergy, Severe, HIVES AND SWELLING, 07/13/15) amoxicillin (Unverified Allergy, Severe, HIVES AND SWELLING, 07/13/15) cefaclor (Unverified Allergy, Severe, HIVES AND SWELLING, 07/13/15) cephalexin (Unverified Allergy, Severe, HIVES AND SWELLING, 07/13/15) adhesive tape (Verified Allergy, Unknown, 07/14/15) Home Medications Lorazepam 1 Mg Tablet, 1 MG PO BID PRN for ANXIETY, (Reported) Constitutional: see HPI EENTM: see HPI Respiratory: no symptoms reported Cardiovascular: no symptoms reported Genitourinary: no symptoms reported Musculoskeletal: see HPI Skin: see HPI Past Jzlowbo-Obftle-Xyqvjl Hx Patient Social History Type Used: Cigarettes Recent Foreign Travel: No Contact w/Someone Who Travel: No Recent Hopitalizations: No Immunizations Up To Date Tetanus Booster (TDap): Unknown PED Vaccines UTD: Yes Seasonal Allergies Seasonal Allergies: Yes Surgeries HX Surgeries: Yes (lithotrypsy) Surgeries: Section Respiratory Hx Respiratory Disorders: Yes Respiratory Disorders: Pulmonary Embolism Cardiovascular Hx Cardiac Disorders: Yes (DVT LEG) Neurological Hx Neurological Disorders: No Reproductive System Hx Reproductive Disorders: No Sexually Transmitted Disease: No HIV/AIDS: No Female Reproductive Disorders: Denies Genitourinary Hx Genitourinary Disorders: Yes Genitourinary Disorders: Kidney Infection, Kidney Stones Gastrointestinal Hx Gastrointestinal Disorders: Yes Gastrointestinal Disorders: Gastroesophageal Reflux Musculoskeletal Hx Musculoskeletal Disorders: No Endocrine Hx Endocrine Disorders: No HEENT HX ENT Disorders: No Loss of Vision: Denies Hearing Impairment: Denies Cancer Hx Cancer: No Psychosocial Hx Psychiatric Problems: Yes Behavioral Health Disorders: Anxiety Integumentary HX Skin/Integumentary Disorder: No Blood Transfusions Hx Blood Disorders: No Adverse Reaction to a Blood Tr: No (N/A) Family Medical History Family Medial History: Cancer 19 MOTHER, Onset:25's - 30 No Family History of: Abdominal aortic aneurysm [place]'s disease Alcoholism Aphasia Cancer of colon Cataract Chest pain Congenital heart disease Congestive heart failure Cystic fibrosis Dementia Dysphagia Family history: Allergy Family history: Alzheimer's disease Family history: Arthritis Family history: Asthma Family history: Breast disease Family history: Cardiovascular disease Family history: Coronary thrombosis Family history: Diabetes mellitus Family history: Gastrointestinal disease Family history: Glaucoma Family history: Hypertension Family history: Osteoporosis Family history: Thyroid disorder Headache Hearing loss Heart disease Hereditary disease History of - anemia History of - disorder History of - respiratory disease History of drug abuse Human immunodeficiency virus (HIV) seropositivity Hypercholesterolemia Infertile Kidney disease Malignant neoplasm of lung Myocardial infarction Parkinson's disease Prostate cancer Psychotic disorder Seizure disorder Stroke Tuberculosis Visual impairment Physical Exam Vital Signs Vital Sign - Last 12Hours 08/13/16 16:30 Temp 99.3 Pulse 70 B/P (MAP) 136/82 O2 Delivery Room Air Capillary Refill : General Appearance: WD/WN, no apparent distress HEENT: PERRL/EOMI, normal ENT inspection Neck: non-tender, full range of motion Respiratory: normal breath sounds, no respiratory distress, no accessory muscle use Hips: bilateral hip non-tender, bilateral hip normal inspection, bilateral hip normal range of motion Legs: left leg pain, left leg soft tissue tenderness, left leg other (there is a palpable erythematous not to the medial posterior left knee) Knees: bilateral knee non-tender, bilateral knee normal inspection, bilateral knee normal range of motion Ankles: bilateral ankle non-tender, bilateral ankle normal inspection, bilateral ankle normal range of motion Feet: bilateral foot non-tender, bilateral foot normal inspection, bilateral foot normal range of motion Neurologic/Psychiatric: alert, normal mood/affect, oriented x 3 Skin: normal color, warm/dry Progress/Results/Core Measures Results/Orders Lab Results Laboratory Tests Test 08/13/16 16:51 Range/Units White Blood Count 13.3 H 4.3-11.0 10^3/uL Red Blood Count 4.56 4.35-5.85 10^6/uL Hemoglobin 13.0 11.5-16.0 G/DL Hematocrit 38 35-52 % Mean Corpuscular Volume 83 80-99 FL Mean Corpuscular Hemoglobin 29 25-34 PG Mean Corpuscular Hemoglobin Concent 34 32-36 G/DL Red Cell Distribution Width 14.3 10.0-14.5 % Platelet Count 257 130-400 10^3/uL Mean Platelet Volume 10.3 7.4-10.4 FL Neutrophils (%) (Auto) 71 42-75 % Lymphocytes (%) (Auto) 20 12-44 % Monocytes (%) (Auto) 6 0-12 % Eosinophils (%) (Auto) 3 0-10 % Basophils (%) (Auto) 0 0-10 % Neutrophils # (Auto) 9.4 H 1.8-7.8 X 10^3 Lymphocytes # (Auto) 2.7 1.0-4.0 X 10^3 Monocytes # (Auto) 0.8 0.0-1.0 X 10^3 Eosinophils # (Auto) 0.4 H 0.0-0.3 10^3/uL Basophils # (Auto) 0.0 0.0-0.1 10^3/uL Sodium Level 139 135-145 MMOL/L Potassium Level 3.6 3.6-5.0 MMOL/L Chloride Level 108 H 98-107 MMOL/L Carbon Dioxide Level 22 21-32 MMOL/L Anion Gap 9 5-14 MMOL/L Blood Urea Nitrogen 11 7-18 MG/DL Creatinine 0.69 0.60-1.30 MG/DL Estimat Glomerular Filtration Rate > 60 BUN/Creatinine Ratio 16 Glucose Level 116 H 70-105 MG/DL Calcium Level 8.9 8.5-10.1 MG/DL Total Bilirubin 0.1 0.1-1.0 MG/DL Aspartate Amino Transf (AST/SGOT) 9 5-34 U/L Alanine Aminotransferase (ALT/SGPT) 9 0-55 U/L Alkaline Phosphatase 66 40-136 U/L Total Protein 6.2 L 6.4-8.2 G/DL Albumin 3.4 3.2-4.5 G/DL My Orders Orders - ALEKSANDAR WELLS APRN Us Venous Lower Ext Lt (08/13/16 16:26) Cbc With Automated Diff (08/13/16 16:29) Comprehensive Metabolic Panel (08/13/16 16:29) Vital Signs/I&O Vital Sign - Last 12Hours 08/13/16 16:30 Temp 99.3 Pulse 70 B/P (MAP) 136/82 O2 Delivery Room Air Diagnostic Imaging Diagonstic Imaging: Ultrasound Comments NAME: BENJI MONTANO [facility] REC#: [id number] PT STATUS: REG ER : 1990 PHYSICIAN: ALEKSANDAR WELLS APRN ADMIT DATE: 08/13/16/ER Draft Date of Exam:08/13/16 US VENOUS LOWER EXT LT PROCEDURE: US left lower extremity venous. TECHNIQUE: Multiple real-time grayscale images were obtained over the left lower extremity in various projections. Additional duplex Doppler and color Doppler images were also obtained. INDICATION: Calf pain. FINDINGS: The left common femoral-femoral and popliteal veins demonstrate normal response to compression, augmentation and Valsalva. There is a thrombosed varicose vein in the calf on the posterior side near the knee. There are no abnormal fluid collections or masses. IMPRESSION: No evidence for deep venous thrombosis in the left lower extremity. Thrombosed varicose vein in the calf. Dictated on workstation # [id number] Dict: 08/13/16 1713 Trans: 08/13/16 1722 [id number] Interpreted by: SURAJ DIAZ Electronically signed by: Departure Communication Progress Notes 1728-I did notify Dr. Jackson of the findings. He will see her in follow-up. Impression Impression: Primary Impression: Thrombosed Varicose Vein of leg Disposition: 01 HOME, SELF-CARE Condition: Stable Departure-Patient Inst. Decision time for Depature: 17:09 Referrals: JUDITH JACKSON MD (PCP/Family) Primary Care Physician Add. Discharge Instructions: 1. Warm compresses to this area 2. Continue aspirin 3. Follow-up with your regular doctor later this week Copy Copies To 1: JUDITH JACKSON MD, PETER J APRN August 13, 2016 16:29
[2016-08-13 17:00] LABS: BASOPHILS % (AUTO) 0 % (0-10); EOSINOPHILS # (AUTO) 0.4 10^3/uL (0.0-0.3); EOSINOPHILS % (AUTO) 3 % (0-10); LYMPHOCYTES # (AUTO) 2.7 X 10^3 (1.0-4.0); LYMPHOCYTES % (AUTO) 20 % (12-44); MEAN CORPUSCULAR HEMOGLOBIN 29 PG (25-34); MEAN CORPUSCULAR HGB CONC 34 G/DL (32-36); MEAN CORPUSCULAR VOLUME 83 FL (80-99); MEAN PLATELET VOLUME 10.3 FL (7.4-10.4); MONOCYTES # (AUTO) 0.8 X 10^3 (0.0-1.0); MONOCYTES % (AUTO) 6 % (0-12); NEUTROPHILS # (AUTO) 9.4 X 10^3 (1.8-7.8); NEUTROPHILS % (AUTO) 71 % (42-75); PLATELET COUNT 257 10^3/uL (130-400); RED BLOOD COUNT 4.56 10^6/uL (4.35-5.85); RED CELL DISTRIBUTION WIDTH 14.3 % (10.0-14.5); WHITE BLOOD COUNT 13.3 10^3/uL (4.3-11.0)
[2016-08-13 17:17] LABS: ALANINE AMINOTRANSFERASE 9 U/L (0-55); ALBUMIN 3.4 G/DL (3.2-4.5); ANION GAP 9 MMOL/L (5-14); ASPARTATE AMINO TRANSFERASE 9 U/L (5-34); BILIRUBIN,TOTAL 0.1 MG/DL (0.1-1.0); BLOOD UREA NITROGEN 11 MG/DL (7-18); BUN/CREATININE RATIO 16; CALCIUM 8.9 MG/DL (8.5-10.1); CARBON DIOXIDE 22 MMOL/L (21-32); CHLORIDE 108 MMOL/L (98-107); CREATININE SERUM 0.69 MG/DL (0.60-1.30); GFR ESTIMATED > 60; GLUCOSE 116 MG/DL (70-105); POTASSIUM 3.6 MMOL/L (3.6-5.0); SODIUM 139 MMOL/L (135-145); TOTAL PROTEIN 6.2 G/DL (6.4-8.2)
--- NOTE | 2016-08-13 17:22 | Diagnostic Imaging Report ---
PROCEDURE: US left lower extremity venous. TECHNIQUE: Multiple real-time grayscale images were obtained over the left lower extremity in various projections. Additional duplex Doppler and color Doppler images were also obtained. INDICATION: Calf pain. FINDINGS: The left common femoral-femoral and popliteal veins demonstrate normal response to compression, augmentation and Valsalva. There is a thrombosed varicose vein in the calf on the posterior side near the knee. There are no abnormal fluid collections or masses. IMPRESSION: No evidence for deep venous thrombosis in the left lower extremity. Thrombosed varicose vein in the calf. Dictated by: Dictated on workstation # [id number]
[2016-08-13 17:40] VITALS: BP 136/82
== END 2016-08-13 17:40 | disposition home or self-care (01) ==
LOC: EDUNIT# 15:55 → ER 15:57
DX: O99.89 Other specified diseases and conditions complicating pregnancy, childbirth and the puerperium (principal); I83.92 Asymptomatic varicose veins of left lower extremity; Z3A.13 13 weeks gestation of pregnancy; Z79.82 Long term (current) use of aspirin; Z86.711 Personal history of pulmonary embolism
CPT/HCPCS: 36415; 80053; 85025; 99285

== ENCOUNTER → 2016-10-03 | Outpatient (CLI) | payer BC ==
--- NOTE | 2016-10-03 11:21 | Diagnostic Imaging Report ---
EXAMINATION: Bilateral renal ultrasound and transvaginal pelvic ultrasound. INDICATION: Right-sided pain and pelvic pain. The patient is 21 weeks . FINDINGS: The right kidney is 13.7 cm in length. There is moderate right hydronephrosis. The left kidney is 12.5 cm in length. No hydronephrosis in the left kidney. The urinary bladder appears grossly unremarkable. Transvaginal pelvic ultrasound evaluation was attempted to assist for possible distal ureteric stone with no definite stone seen. The distal ureters are not clearly visualized. IMPRESSION: There is moderate right-sided hydronephrosis. Dr. Ferrera was informed of the findings at the time of dictation. Dictated by: Dictated on workstation # [id number]
== END ==
LOC: RAD 10:28
PROVIDERS: ATTEND Family Medicine
DX: O26.892 Other specified pregnancy related conditions, second trimester (principal); N13.30 Unspecified hydronephrosis; Z3A.21 21 weeks gestation of pregnancy
CPT/HCPCS: 76770

== ENCOUNTER → 2016-10-06 | Outpatient (CLI) | payer BC ==
[~2016-10-06] MED LIST changes: +CATHETER FLUSH 10 ML SYR IV PRN; +IOHEXOL 300 MG/ML 100 ML (OMNIPAQUE 300) VIAL IV ONE
--- NOTE | 2016-10-06 14:17 | Diagnostic Imaging Report ---
EXAMINATION: Intravenous pyelogram. INDICATION: Right flank pain and hydronephrosis. The patient is 21 weeks . CONTRAST: 100 mL of Omnipaque 300 was administered intravenously. 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 FINDINGS: The jewelry drilling machine operator image demonstrates an 8 mm calcification in the right side of the pelvis, suspicious for a distal right ureteric stone. At 10 minutes, there is excretion opacifying the renal collecting system on the left side with a delayed nephrogram on the right. There bladder is the normal in appearance and the is minimally opacified from the left the renal collecting system. At 45 minutes, a supine image of the right side of the abdomen was taken and demonstrates moderate to severe hydroureteronephrosis with no definite contrast seen distal to the stone. IMPRESSION: Obstructive 8 mm stone in the distal right ureter, about 3.5 cm from the UVJ with upstream moderate to severe right hydroureteronephrosis. The findings were discussed with Dr. Ferrera at the time of dictation. Dictated by: Dictated on workstation # [id number]
== END ==
LOC: RAD 12:22
PROVIDERS: ATTEND Family Medicine
DX: O99.89 Other specified diseases and conditions complicating pregnancy, childbirth and the puerperium (principal); N13.2 Hydronephrosis with renal and ureteral calculous obstruction; Z3A.21 21 weeks gestation of pregnancy
CPT/HCPCS: 74415